=== PATIENT | female | born 1995 | race Two or more races ===

== ENCOUNTER 2020-12-23 01:51 | Emergency (ER) | payer OTHER ==
[~2020-12-23] VITALS: Ht 162.6 cm; Wt 49.4 kg
[2020-12-23] MEDS ORDERED: CEPHALEXIN500 MG (02:13)
[2020-12-23] MEDS ORDERED: ACETAMINOPHEN650 M2 PO (04:00)
[2020-12-23] MEDS ORDERED: AZITHROMYCIN250 MG PO (04:00)
[2020-12-23] MEDS ORDERED: MUCINEX DM ER1 EACH PO (04:11)
[2020-12-23] MEDS ORDERED: MELATONIN5 M2 PO (04:11)
[2020-12-23] MEDS ORDERED: VITAMIN C WIT1000 MG PO (04:11)
[2020-12-23] MEDS ORDERED: VITAMIN D3-ALO1 EACH PO (04:11)
== END 2020-12-23 04:14 | disposition home or self-care (01) ==
LOC: ER 01:51
DX: B34.9 Viral infection, unspecified (principal); Z20.822 Contact with and (suspected) exposure to COVID-19

== ENCOUNTER → 2021-05-01 | Outpatient (CLI) | payer OTHER ==
[~2021-05-01] MED LIST: ACETAMINOPHEN650 M2 PO; AZITHROMYCIN250 MG PO; CEPHALEXIN500 MG; MELATONIN5 M2 PO; MUCINEX DM ER1 EACH PO; VITAMIN C WIT1000 MG PO; VITAMIN D3-ALO1 EACH PO
== END | disposition home or self-care (01) ==
LOC: PRENATAL 11:00
PROVIDERS: ATTEND Obstetrics & Gynecology Maternal & Fetal Medicine
DX: O35.0XX1 Maternal care for (suspected) central nervous system malformation in fetus, fetus 1 (principal); O35.3XX1 Maternal care for (suspected) damage to fetus from viral disease in mother, fetus 1; O98.512 Other viral diseases complicating pregnancy, second trimester; O24.410 Gestational diabetes mellitus in pregnancy, diet controlled; Z36.89 Encounter for other specified antenatal screening; Z3A.22 22 weeks gestation of pregnancy

== ENCOUNTER → 2021-06-19 | Outpatient (CLI) | payer OTHER | END | disposition home or self-care (01) | LOC: PRENATAL 06-12 10:30 | PROVIDERS: ATTEND Obstetrics & Gynecology Maternal & Fetal Medicine | DX: O26.843 Uterine size-date discrepancy, third trimester (principal); O24.410 Gestational diabetes mellitus in pregnancy, diet controlled; Z36.89 Encounter for other specified antenatal screening; Z3A.30 30 weeks gestation of pregnancy ==

== ENCOUNTER 2023-04-30 16:53 | Emergency (ER) | payer OTHER ==
[~2023-04-30] VITALS: Ht 162.6 cm; Wt 52.2 kg
== END 2023-04-30 20:49 | disposition home or self-care (01) ==
LOC: ER 16:53
DX: R10.2 Pelvic and perineal pain (principal); Z3A.01 Less than 8 weeks gestation of pregnancy; Z88.6 Allergy status to analgesic agent; Z91.013 Allergy to seafood

== ENCOUNTER 2024-06-06 11:02 | Emergency (ER) | payer OTHER ==
[~2024-06-06] VITALS: Ht 162.6 cm; Wt 52.2 kg
[2024-06-06] MEDS ORDERED: RINGERS SOLUTION,LACTATED 1,000 ML IV STA (13:03)
[2024-06-06 13:30] LABS: HEMATOCRIT 35.8 % (36.0-45.00); MEAN CELL VOLUME 75.5 fL (80.00-100.00); MEAN CORPUSCULAR HEMOGLOBIN 25.3 pg (27.00-32.0); MEAN CORPUSCULAR HGB CONC 33.5 g/dl (32.0-36.0); PLATELET COUNT 250 K/uL (150-450); RED BLOOD COUNT 4.74 M/uL (4.00-6.00); RED CELL DISTRIBUTION WIDTH 15.8 % (11.5-14.5)
[2024-06-06 13:41] LABS: ALBUMIN 3.8 gm/dL (3.4-5.0); BILIRUBIN TOTAL 0.62 mg/dL (0.3-1.2); BILIRUBIN,CONJUGATED 0.18 mg/dL (0.0-0.2); BILIRUBIN,UNCONJUGATED 0.44 mg/dL (0.0-0.6); CALCIUM 8.8 mg/dL (8.5-10.1); CREATININE SERUM 0.7 mg/dL (0.55-1.02); GFR 100.38; POTASSIUM 4.02 mEq/L (3.5-5.1)
[2024-06-06 15:19] LABS: PH,URINE 5.5 (5.0-8.0); URINE APPEARANCE Clear; URINE BILIRRUBIN Negative (NEGATIVE); URINE BLOOD Large; URINE COLOR Yellow; URINE GLUCOSE Negative (NEGATIVE); URINE LEUKOCYTE Moderate; URINE NITRATE Negative; URINE PROTEIN Negative (NEGATIVE); URINE UROBILINOGEN 0.2 E.U./dl
[2024-06-06 15:23] LABS: URINE RBC 234.8 uL (0.0-20.8); URINE WBC 150.7 uL (0.0-23.2)
== END 2024-06-06 17:57 | disposition home or self-care (01) ==
LOC: ER 11:04
PROVIDERS: General Practice
DX: R19.7 Diarrhea, unspecified (principal); E86.0 Dehydration; Z88.6 Allergy status to analgesic agent; Z91.013 Allergy to seafood

== ENCOUNTER 2025-01-23 10:13 | Emergency (ER) | payer OTHER ==
[~2025-01-23] VITALS: Ht 167.6 cm; Wt 52.2 kg
[2025-01-23 11:33] LABS: PH,URINE 5.5 (5.0-8.0); URINE APPEARANCE Clear; URINE BILIRRUBIN Negative (NEGATIVE); URINE BLOOD Negative; URINE COLOR Yellow; URINE GLUCOSE Negative (NEGATIVE); URINE KETONE Negative (NEGATIVE); URINE LEUKOCYTE Negative; URINE NITRATE Negative; URINE PROTEIN Negative (NEGATIVE); URINE UROBILINOGEN 0.2 E.U./dl
[2025-01-23 11:33] LABS: HEMOGLOBIN 12.7 g/dL (12.0-15.00); MEAN CELL VOLUME 78.3 fL (80.00-100.00); MEAN CORPUSCULAR HEMOGLOBIN 28.3 pg (27.00-32.0); MEAN CORPUSCULAR HGB CONC 36.1 g/dl (32.0-36.0); PLATELET COUNT 219 K/uL (150-450); RED BLOOD COUNT 4.48 M/uL (4.00-6.00); RED CELL DISTRIBUTION WIDTH 15.3 % (11.5-14.5)
[2025-01-23 11:34] LABS: URINE BACTERIA 110.1 uL (0.0-1933); URINE EPITHELIAL CELLS 2.2 uL (0.0-38.8); URINE RBC 3.5 uL (0.0-20.8); URINE WBC 6.2 uL (0.0-23.2)
[2025-01-23] MEDS ORDERED: NORFLEX100MG PO (13:47)
== END 2025-01-23 14:00 | disposition home or self-care (01) ==
LOC: ER 10:15
PROVIDERS: General Practice
DX: R10.2 Pelvic and perineal pain (principal); N83.202 Unspecified ovarian cyst, left side; Z88.6 Allergy status to analgesic agent; Z91.013 Allergy to seafood

== ENCOUNTER 2025-07-21 18:32 | Emergency (ER) | payer OTHER ==
[~2025-07-21] VITALS: Ht 162.6 cm; Wt 54.4 kg
[~2025-07-21 18:32] MED LIST changes: +NORFLEX100MG PO
[2025-07-21] MEDS ORDERED: CEFTRIAXONE SODIUM 1,000 MG VIAL IM ONE (19:30)
[2025-07-21] MEDS ORDERED: CEFTRIAXONE SODIUM 1,000 MG VIAL ONE (19:40)
[2025-07-21 20:01] LABS: BASO % 0.6 % (0.1-1.2); EOS # 0.21 (0.04-0.54); EOS % 2.0 % (0.7-7.0); LYMPH # 3.52 (1.18-3.74); LYMPH % 33.5 % (19.3-53.1); MEAN PLATELET VOLUME 9.80 fl (9.4-12.4); MONO # 0.72 (0.24-0.82); MONO % 6.8 % (4.7-12.5); NEUT # 5.98 (1.56-6.13); NEUT % 56.8 % (34.0-71.1); RED CELL DISTRIBUTION WIDTH 12.9 % (11.6-14.4)
[2025-07-21 20:26] LABS: URINE APPEARANCE Cloudy; URINE BILIRRUBIN Negative (NEGATIVE); URINE BLOOD NHT; URINE COLOR Yellow; URINE GLUCOSE Negative (NEGATIVE); URINE KETONE Trace (NEGATIVE); URINE LEUKOCYTE Large; URINE NITRATE Negative; URINE PROTEIN Trace (NEGATIVE); URINE UROBILINOGEN 1.0 E.U./dl
[2025-07-21 20:27] LABS: URINE EPITHELIAL CELLS 153.3 uL (0.0-38.8); URINE RBC 48.5 uL (0.0-20.8); URINE WBC 699.5 uL (0.0-23.2)
[2025-07-21 20:44] LABS: URINE BACTERIA > 9821.5 uL (0.0-1933); URINE CAST 0.29 uL (0.0-1.40)
[2025-07-21] MEDS ORDERED: PEPCID AC20 MG PO (20:55)
[2025-07-21] MEDS ORDERED: PYRIDIUM DS200 MG PO (20:55)
[2025-07-21] MEDS ORDERED: BACTRIM DS TAB1 EACH PO (20:55)
[2025-07-21] MEDS ORDERED: VAGISIL CREAM28 GM TOP (20:55)
== END 2025-07-21 21:28 | disposition home or self-care (01) ==
LOC: ER 18:32
PROVIDERS: General Practice
DX: N39.0 Urinary tract infection, site not specified (principal); B96.89 Other specified bacterial agents as the cause of diseases classified elsewhere; N89.8 Other specified noninflammatory disorders of vagina; Z88.6 Allergy status to analgesic agent; Z91.013 Allergy to seafood